=== PATIENT | female | born 1960 | race Hispanic/Latino ===

== ENCOUNTER 2019-10-08 10:13 | Emergency (ER) | payer MEDICARE ==
--- NOTE | 2019-10-08 10:45 | Emergency Department Report ---
ED CPR HPI - General Chief Complaint: Cardiac Arrest/CPR Stated Complaint: CARDIAC ARREST Time Seen by Provider: 10/08/19 10:41 Source: police, EMS Mode of arrival: Stretcher Limitations: Other - History of Present Illness Initial Comments: Patient is 59 years old female with history of spina bifida, bedridden. Patient brought to the emergency room from home via EMS in a full cardiac arrest, CPR in progress. Family stated that she has been sick for the last 2 days stating that she is having kidney infection. Family stated that they visited her primary care physician yesterday and she was started on Bactrim for a UTI. Family stated that she stop breathing this morning. Family started CPR and patient. EMS when arrived to the patient patient is in asystole. ACLS protocol initiated by EMS and patient intubated by a Jair airway. EMS unable to obtain IV access. Patient had bilateral above-knee amputation so unable to get also IO. All med ication has been given through the ET tube. Patient has been down for approximately 35 minutes prior to coming to the emergency room and patient in asystole all this time. In the emergency room patient has a good breath sounds on both side however there is no spontaneous breathing. Patient continued to be in asystole. Multiple attempts to obtain an IV lines by the nurse are unsuccessful. I tried to IO her humerus with no success also. However medication has been given through the ET tube. Unfortunately patient continued to be in asystole. Patient pronounced at 10:26 AM. Family informed. For further information please refer to code sheet. - Related Data Allergies Allergy/AdvReac Type Severity Reaction Status Date / Time azithromycin Allergy Rash Unverified 01/22/13 08:00 cefixime Allergy Itching Unverified 01/22/13 08:00 ED Review of Systems ROS: Stated complaint: CARDIAC ARREST Other details as noted in HPI Comment: Unobtainable due to pts medical conditions ED Physical Exam - General Limitations: Other General appearance: other (CPR in progress. Patient with bilateral above-knee amputation.) - Eye Pupils: Present: other (Pupils are 4 mm, fixed and dilated.) - ENT ENT exam: Present: mucous membranes dry - Neck Neck exam: Present: normal inspection - Respiratory Respiratory exam: Present: other (No spontaneous breathing.) - Cardiovascular Cardiovascular Exam: Present: other (No spontaneous heart tone.) - GI/Abdominal GI/Abdominal exam: Present: soft, other (Colostomy bag in place.) - Extremities Exam Extremities exam: Present: other (Bilateral above knee amputation) - Neurological Exam Neurological exam: Present: other (CPR in progress.) - Skin Skin exam: Present: warm, dry Critical Care Time: Yes Critical care time in (mins) excluding proc time.: 30 Critical care attestation.: If time is entered above; I have spent that time in minutes in the direct care of this critically ill patient, excluding procedure time. ED Disposition Clinical Impression: Cardiopulmonary arrest Disposition: DC-20 Is pt being admited?: No Condition: Stable Referrals: PRIMARY CARE, [Primary Care Provider] - 3-5 Days
== END 2019-10-08 13:31 ==
LOC: ED 10:13
DX: I46.9 Cardiac arrest, cause unspecified (principal); Z88.1 Allergy status to other antibiotic agents; Z88.8 Allergy status to other drugs, medicaments and biological substances
CPT/HCPCS: 92950